=== PATIENT | female | born 1955 | race Caucasian/White ===

== ENCOUNTER 2021-11-24 11:37 | Emergency (ER) | payer MEDICARE, SELFPAY ==
[2021-11-24 11:44] VITALS: BP 142/99; PULSE 70; RESP 18; TEMP 36.2; O2SAT 100
--- NOTE | 2021-11-24 11:45 | ED.GENADULT ---
HPI - General Adult General Chief complaint: Headache Stated complaint: HEADACHE Time Seen by Provider: 11/24/21 11:45 Source: patient Mode of arrival: ambulatory Limitations: no limitations History of Present Illness HPI narrative: 66 yo F with hx of migraines presents with c/o headache for 3 days. Reports this is her typical migraine. Typical migraines consist of light sensitivity, headache, brain fog. Does have 1 imitrex pill left but states she was saving it for an emergency. Is going out of town for 3 wks to [place] and doesn't want to be without imitrex. Is requesting a refill. Has not had a PCP for 2 yrs since he retired. Does plan to start care with her 's PCP. She is ambulatory with steady gait. No vision changes. No c/o weakness or numbness. no slurred speech. All systems reviewed and negative except as noted above. Related Data Allergies Allergy/AdvReac Type Severity Reaction Status Date / Time No Known Allergies Allergy Unverified 06/20/20 09:57 Review of Systems Review of Systems: CONSTITUTIONAL: Denies fever, chills, or sweats. EYES: Denies visual changes, redness, or discharge. ENT: Denies rhinorrhea, congestion, sore throat, or otalgia. CARDIOVASCULAR: Denies chest pain, palpitations, or edema. RESPIRATORY: Denies cough or dyspnea. GASTROINTESTINAL: Denies abdominal pain, nausea, vomiting, or diarrhea. GENITOURINARY: Denies dysuria or hematuria. SKIN: Denies rash or itching. MUSCULOSKELETAL: Denies back pain, joint pain, or myalgia. NEUROLOGIC: Reports headache. Denies numbness, or weakness. PSYCHIATRIC: Denies anxiety or depression. All other systems reviewed are negative, except as documented in HPI. [facility] Past Medical History Medical History Migraine, unspecified, not intractable, without status migrainosus Prediabetes Surgical History Surgical History H/O arthroscopy of right knee (~2016) 07/28 - meniscal repair History of cholecystectomy (~2009) History of suburethral sling procedure 10/1028 Family History Family History Father Family history of alcoholism Social History Social History Smoking status: Never smoker Alcohol intake: current Drinks per week: 1 Comments At time of signature, agree with nursing past medical, surgical, social and family history. There is no relevant family history pertinent to the presenting complaint. Exam Narrative: GENERAL: This is a well-nourished, well-developed patient, in no apparent distress. HEAD: normocephalic, atraumatic. EYES: PERRL. Sclera clear/white. Vision is grossly intact. EARS: External ears normal NOSE: External nose normal THROAT: Mucous membranes moist, posterior pharynx clear. NECK: Neck supple, non-tender without lymphadenopathy, masses or thyromegaly. CARDIOVASCULAR: Regular rate and rhythm without murmurs, gallops, or rubs. RESPIRATORY: Clear to auscultation. Breath sounds equal bilaterally. No wheezes, rales, or rhonchi. SKIN: warm, Dry, intact with no suspicious lesions or rash, good texture and turgor. NEURO: awake, alert, and oriented to person, place and time. There were no obvious focal neurologic abnormalities. Equal it corporate recruiter. Strength all extremities 5 out of 5. EXTREMITIES: No joint tenderness, effusion, or edema noted. No calf tenderness. Negative Homans sign bilaterally. Course Course Level of Care: Express Care Visit Vital Signs Vital signs: Vital Signs Temperature 36.2 C L 11/24/21 11:44 Pulse Rate 70 11/24/21 11:44 Respiratory Rate 18 11/24/21 11:44 Blood Pressure 142/99 H 11/24/21 11:44 Pulse Oximetry 100 11/24/21 11:44 Temperature 36.2 C L 11/24/21 11:46 Pulse Rate 70 11/24/21 11:46 Respiratory Rate 18 11/24/21 11:46 Blood Pressure 142/99 H
[2021-11-24 11:46] VITALS: BP 142/99; PULSE 70; RESP 18; TEMP 36.2; O2SAT 100
[2021-11-24] MEDS: KETOROLAC 30 MG/ML VIAL (*BKC) IM (12:02)
== END 2021-11-24 12:21 | disposition home or self-care (01) ==
PROVIDERS: Emergency Provider Nurse Practitioner Family
DX: G43.909 Migraine, unspecified, not intractable, without status migrainosus (principal); R73.03 Prediabetes
CPT/HCPCS: 96372; 99213; G0463; J1885